=== PATIENT | male | born 1955 | race Caucasian/White ===

== ENCOUNTER 2019-03-25 13:59 | Observation (INO) | payer OTHER ==
[~2019-03-25] VITALS: Ht 180.3 cm; Wt 76.0 kg
--- NOTE | 2019-03-25 14:09 | NUR ---
MARCELO BRISENO FROM [facility] [place]. PT C/O CP THAT WOKE HIM UP AT 0400 THIS AM 4/10. CP HAS BEEN INTERMITTENT. 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 DENIES CP AT THIS TIME. PT CONNECTED TO MONITORING. CALL LIGHT IN REACH. CALL LIGHT IN REACH.
[2019-03-25] MEDS ORDERED: SODIUM CHLORIDE FLUSH 10ML SYR IVF ONE (14:30)
[2019-03-25 14:42] LABS: BASOPHILS # (AUTO) 0.06 x10^3/uL (0-0.1); BASOPHILS % (AUTO) 1 % (0-1); EOSINOPHILS # (AUTO) 0.22 x10^3/uL (0-0.4); EOSINOPHILS % (AUTO) 3 % (1-7); LYMPHOCYTES # (AUTO) 2.06 x10^3/uL (1-3.4); LYMPHOCYTES % (AUTO) 26 % (22-44); MD NO; MEAN CORPUSCULAR HEMOGLOBIN 30.5 pg (27.5-34.5); MEAN CORPUSCULAR HGB CONC 32.5 g/dL (33.2-36.2); MEAN CORPUSCULAR VOLUME 93.8 fL (81-97); MONOCYTES # (AUTO) 0.51 x10^3/uL (0.2-0.8); MONOCYTES % (AUTO) 6 % (2-9); NEUTROPHILS # (AUTO) 5.13 x10^3/uL (1.8-6.8); NEUTROPHILS % (AUTO) 64 % (42-75); PLATELET COUNT 209 x10^3/uL (130-400); RED BLOOD COUNT 4.85 x10^6/uL (4.38-5.82); RED CELL DISTRIBUTION WIDTH 14.1 % (9.4-14.8)
[2019-03-25 14:47] LABS: ALANINE AMINOTRANSFERASE 32 U/L (12-78); ALBUMIN 3.8 g/dL (3.4-5.0); ANION GAP 7 mmol/L (5-15); CALCIUM 8.6 mg/dL (8.5-10.1); CHLORIDE 112 mmol/L (98-107); CREATININE 0.79 mg/dL (0.7-1.3)
[2019-03-25 14:52] LABS: ALKALINE PHOSPHATASE 71 U/L (45-117); BILIRUBIN,TOTAL 0.4 mg/dL (0.2-1.0); TROPONIN I < 0.015 ng/mL (0.000-0.045)
--- NOTE | 2019-03-25 15:03 | NUR ---
PT RESTING COMFORTABLY ON GURNEY. OLEGARIO.
[2019-03-25] MEDS ORDERED: SODIUM CHLORIDE FLUSH 10ML SYR IVF PRN (16:00)
--- NOTE | 2019-03-25 16:10 | NUR ---
TASK RN: PT RESTING ON GURNEY. NADN. MACARIO.
--- NOTE | 2019-03-25 16:12 | NUR ---
TASK RN: PT PROVIDED W/ DINNER TRAY.
--- NOTE | 2019-03-25 17:23 | NUR ---
HOSPITALIST AT BEDSIDE.
[2019-03-25] MEDS: SODIUM CHLORIDE 0.9% 1,000 ML IV SCH (17:27)
[2019-03-25] MEDS ORDERED: DOCUSATE 100 MG CAPSULE PO PRN (17:30)
[2019-03-25] MEDS ORDERED: ACETAMINOPHEN 325 MG TABLET PO PRN (17:30)
[2019-03-25] MEDS ORDERED: ONDANSETRON 2MG/ML, 2ML IVPush PRN (17:30)
[2019-03-25] MEDS ORDERED: ONDANSETRON ODT 4 MG PO PRN (17:30)
[2019-03-25] MEDS ORDERED: PROMETHAZINE 25 MG/ML, 1ML IM PRN (17:30)
[2019-03-25] MEDS ORDERED: hydrALAzine 20 MG/ML, 1ML IVPush PRN (17:30)
[2019-03-25] MEDS ORDERED: morphine SULFATE 10 MG/ML, 1ML IVPush PRN (17:30)
[2019-03-25] MEDS ORDERED: OXYcodone IR 5MG TABLET PO PRN (17:30)
[2019-03-25] MEDS ORDERED: BISACODYL 10 MG SUPP PR PRN (17:30)
[2019-03-25] MEDS ORDERED: POLYETHYLENE GLYCOL 17 GM PACKET PO PRN (17:30)
[2019-03-25] MEDS ORDERED: HEPARIN 5,000 UNITS/ML, 1ML ONE (17:47)
[2019-03-25] MEDS: HEPARIN 5,000 UNITS/ML, 1ML SQ SCH (17:53)
--- NOTE | 2019-03-25 17:57 | NUR ---
REPORT GIVEN TO NELLI ESPINOZA.
[2019-03-25] MEDS ORDERED: NITROGLYCERIN 0.4 MG BOTTLE (25 TABS) SL PRN (18:00)
[2019-03-25 18:08] VITALS: BP 156/72
[2019-03-25 18:18] LABS: FREE T4 (FREE THYROXINE) 1.09 ng/dL (0.76-1.46)
[2019-03-25 19:50] VITALS: BP 147/85
[2019-03-25 21:22] LABS: TROPONIN I < 0.015 ng/mL (0.000-0.045)
[2019-03-26 01:23] LABS: TROPONIN I < 0.015 ng/mL (0.000-0.045)
[2019-03-26 01:52] VITALS: BP 146/83
[2019-03-26] MEDS: HEPARIN 5,000 UNITS/ML, 1ML SQ SCH ×2 (01:55→08:50)
[2019-03-26 05:08] LABS: BASOPHILS # (AUTO) 0.08 x10^3/uL (0-0.1); BASOPHILS % (AUTO) 1 % (0-1); EOSINOPHILS # (AUTO) 0.34 x10^3/uL (0-0.4); EOSINOPHILS % (AUTO) 5 % (1-7); LYMPHOCYTES # (AUTO) 2.84 x10^3/uL (1-3.4); LYMPHOCYTES % (AUTO) 40 % (22-44); MD NO; MEAN CORPUSCULAR HEMOGLOBIN 30.6 pg (27.5-34.5); MEAN CORPUSCULAR HGB CONC 32.9 g/dL (33.2-36.2); MEAN CORPUSCULAR VOLUME 93.2 fL (81-97); MEAN PLATELET VOLUME 10.6 fL (7.4-10.4); MONOCYTES # (AUTO) 0.57 x10^3/uL (0.2-0.8); MONOCYTES % (AUTO) 8 % (2-9); NEUTROPHILS # (AUTO) 3.27 x10^3/uL (1.8-6.8); NEUTROPHILS % (AUTO) 46 % (42-75); PLATELET COUNT 212 x10^3/uL (130-400); RED BLOOD COUNT 4.82 x10^6/uL (4.38-5.82); RED CELL DISTRIBUTION WIDTH 14.1 % (9.4-14.8)
[2019-03-26 05:15] LABS: ALBUMIN 3.5 g/dL (3.4-5.0); ANION GAP 4 mmol/L (5-15); CALCIUM 8.1 mg/dL (8.5-10.1); CHLORIDE 114 mmol/L (98-107)
[2019-03-26 05:19] LABS: ALANINE AMINOTRANSFERASE 32 U/L (12-78); ALKALINE PHOSPHATASE 66 U/L (45-117); BILIRUBIN,TOTAL 0.7 mg/dL (0.2-1.0); CHOL/HDL RATIO 2.6; CHOLESTEROL, TOTAL 156 mg/dL (140-239); CREATININE 0.91 mg/dL (0.7-1.3); HDL CHOL % 38 % (26-37); HDL CHOLESTEROL (DIRECT) 60 mg/dL (40-60); LDL CHOLESTEROL,CALCULATED 85 mg/dL (54-169); LDL/HDL RATIO 1.4 (0.5-3.0); TOTAL PROTEIN 6.4 g/dL (6.4-8.2); TRIGLYCERIDES 55 mg/dL (50-200); VLDL CHOLESTEROL 11 mg/dL (0-25)
[2019-03-26] MEDS ORDERED: ASPIRIN 325 MG TABLET EC PO SCH (06:00)
[2019-03-26] MEDS: SODIUM CHLORIDE 0.9% 1,000 ML IV SCH (07:31)
[2019-03-26 08:00] VITALS: BP 132/81
[2019-03-26] MEDS ORDERED: REGADENOSON 0.4 MG/5 ML SYRINGE ONE (10:58)
[2019-03-26] MEDS ORDERED: OMEP-110 PO (14:21)
== END 2019-03-26 15:26 | disposition home or self-care (01) ==
LOC: ED 15:51 → EDIP 17:27 → 5SO 18:08
PROVIDERS: ADMIT Internal Medicine; ATTEND Internal Medicine
DX: R07.9 Chest pain, unspecified (principal); R42 Dizziness and giddiness; I20.0 Unstable angina; I44.4 Left anterior fascicular block; R94.31 Abnormal electrocardiogram [ECG] [EKG]; Z85.820 Personal history of malignant melanoma of skin; Z87.891 Personal history of nicotine dependence; Z79.899 Other long term (current) drug therapy
CPT/HCPCS: 36415; 71045; 78452; 80053; 80061; 83036; 83735; 84439; 84443; 84484; 85025; 93005; 93017; 96360; 96361; 96372; 99284; A9502; C9898; G0378; J1644; J2785; J7030